=== PATIENT | male | born 2005 | race Caucasian/White ===

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

== ENCOUNTER 2023-05-29 08:16 | Emergency (ER) | payer BC, MEDICAID, SELFPAY ==
[2023-05-29 08:23] VITALS: BP 130/82; PULSE 96; RESP 18; TEMP 37.7; O2SAT 100
--- NOTE | 2023-05-29 08:53 | ED.URI ---
HPI - URI/Sore Throat General Chief Complaint: Upper Respiratory Infection Stated Complaint: sinus/fever/cough Time Seen by Provider: 05/29/23 08:53 Source: patient, RN notes reviewed and old records reviewed Mode of arrival: ambulatory Limitations: no limitations History of Present Illness HPI Narrative: 17-year-old male presents to [facility] with complaints of 3 day history of fever,cough, sore throat, and body aches. Patient states that he has been taking Mucinex, DayQuil and NyQuil for his symptoms. He states last night he did have a fever 101F which he treated with some Ibuprofen. Patient reports no known ill contacts. MD elicited complaint: fever, cough, sore throat and other (body aches) Onset (ago): day(s) (3) Pain scale (0-10): 5 Able to tolerate fluids by mouth: Yes Treatments prior to arrival: ibuprofen and other (DayQuil,NyQuil, Mucinex) Related Data Home Medications Medication Instructions Recorded Confirmed No Home Medications 05/29/23 05/29/23 Allergies Allergy/AdvReac Type Severity Reaction Status Date / Time No Known Allergies Allergy Verified 07/15/22 08:29 Review of Systems Review of Systems: CONSTITUTIONAL: Reports malaise, chills, sweats, or fever. EYES: Denies visual changes, redness, or discharge. ENT: Reports rhinorrhea, congestion,no sinus pain,no otalgia and positive for sore throat. CARDIOVASCULAR: Denies chest pain, palpitations, or edema. RESPIRATORY: Reports cough.? Denies dyspnea. GASTROINTESTINAL: Denies abdominal pain, nausea, vomiting, diarrhea SKIN: Denies rash or itching. MUSCULOSKELETAL: Reports myalgia. NEUROLOGIC: Denies headache. All systems reviewed & are unremarkable except as noted in HPI and below PMFSH Past Medical History Medical History (Updated 05/30/23 @ 11:05 by Edelmira Aguilar NP) ADD (attention deficit disorder) Seasonal allergies Sinusitis Social History Social History (Updated 04/10/22 @ 15:50 by Edelmira Aguilar NP) Smoking status: Never smoker Alcohol intake: unknown Substance use type: does not use Gender identity (if verbalized by the patient): Male Comments At time of signature, agree with nursing past medical, surgical, social and family history. There is no relevant family history pertinent to the presenting complaint Exam Narrative: GENERAL: Well-appearing, well-nourished, and in no acute distress. HEAD: Normocephalic EYES: PERRLA, conjunctivae clear ENT: Nares clear, turbinates edematous and erythematous, clear discharge. Mucous membranes moist. TM pearly vickers with dull light reflex bilaterally; no tragal tenderness. Oropharynx erythematous without lesions. Tonsils not enlarged and without exudate, no drooling, no hoarseness, no trismus, uvula midline. post nasal drainage NECK: Supple. No lymphadenopathy CHEST: Clear to auscultation, breath sounds equal. No wheezing, rhonchi, rales, or stridor. No respiratory distress, speaks in full sentences.cough noted,SAO2 100% on room air HEART: Regular rate and rhythm. No murmur heard. SKIN: Warm, dry, no rash. NEURO: Alert and oriented x3. PSYCH: Normal mood and affect Course Course Emergency Course: Patient is aware of diagnosis, understands and agrees to treatment plan.? Anticipatory guidance given.? Patient agrees to follow-up as directed and is aware of reasons to seek care at the emergency department. Portions of this record may have been created with voice recognition software Level of Care: Express Care Visit Vital Signs Vital signs: Vital Signs Temperature 37.7 C H 05/29/23 08:23 Pulse Rate 96 05/29/23 08:23 Respiratory Rate 18 05/29/23 08:23 Blood Pressure 130/82 05/29/23 08:23 Pulse Oximetry 100 05/29/23 08:23 Oxygen Delivery Room Air 05/29/23 08:23 Temperature 37.7 C H 05/29/23 08:23 Pulse Rate 96 05/29/23 08:23 Respiratory Rate 18 05/29/23 08:23 Blood Pressure 130/82 05/29/23 08
== END 2023-05-29 09:16 | disposition home or self-care (01) ==
PROVIDERS: Emergency Provider Registered Nurse; PCP Pediatrics
DX: B34.9 Viral infection, unspecified (principal); U07.1 COVID-19
CPT/HCPCS: 87081; 87426; 87804; 87880; 99213; G0463